=== PATIENT | female | born 1955 | race Caucasian/White ===

== ENCOUNTER → 2016-07-05 | Outpatient (CLI) | payer BC ==
[~2016-07-05] MED LIST: ANTI ANXIETY MED; ASPIRIN 81M81 MG/TA2 PO; BRINTELLIX10 PO; CALCIUM; CALCIUM1 CAP PO; FLONASE NASAL S16 GM NS; FOSAMAX 70MG TA70 MG PO; FOSAMAX PO; FOSAMAX5 MG PO; LAMICTAL 100MG100 MG PO; LEVOXYL0.088 MG PO; LEXAPRO 10MG10 MG PO; VITAMIN D 400400 IU PO
== END ==
LOC: MC.RAD 07:00
DX: D24.2 Benign neoplasm of left breast (principal); D24.1 Benign neoplasm of right breast; Z80.3 Family history of malignant neoplasm of breast

== ENCOUNTER → 2016-07-30 | Outpatient (CLI) | payer BC | LOC: BHSO 15:56 | DX: F41.1 Generalized anxiety disorder (principal) ==